=== PATIENT | female | born 1985 | race Two or more races ===

== ENCOUNTER → 2017-05-08 | Outpatient (CLI) | payer BC ==
[~2017-05-08] VITALS: Ht 160 cm; Wt 76.8 kg
[~2017-05-08] MED LIST: CELEXA20 MG PO; FLEXERIL10 MG PO; NAPROXEN500 MG PO; PRENATAL TABLE1 EAC3 PO; TRAMADOL HCL50 MG PO
[2017-05-08 13:18] VITALS: BP 125/55
== END | disposition home or self-care (01) ==
LOC: IVINF 13:00
DX: Z34.83 Encounter for supervision of other normal pregnancy, third trimester (principal); Z3A.28 28 weeks gestation of pregnancy; Z67.11 Type A blood, Rh negative
CPT/HCPCS: 96372; J2790

== ENCOUNTER 2017-08-02 06:35 | Inpatient (IN) | payer BC ==
[2017-08-02] VITALS (20 sets, daily range): BP systolic 106–136; BP diastolic 54–75
[~2017-08-02] VITALS: Ht 160 cm; Wt 83.6 kg
[2017-08-02 07:47] LABS: BASOPHIL (%) 0.4 % (0-1); BASOPHIL COUNT 0.1 K/uL (0-0.1); EOSINOPHIL (%) 0.2 % (0-5); HEMATOCRIT 35.6 % (36.0-46.0); HEMOGLOBIN 12.2 G/DL (11.9-15.5); IMMATURE GRANULOCYTE (%) 0.5 % (0.0-0.7); LYMPHOCYTE COUNT 2.4 K/uL (1.0-2.8); MCHC 34.3 G/DL (30.0-36.0); MCV 87.7 FL (83-99); MONOCYTE (%) 6.3 % (3-12); MONOCYTE COUNT 0.8 K/uL (0-0.8); NEUTROPHIL (%) 73.6 % (45-76); NEUTROPHIL COUNT 9.4 K/uL (1.8-6.4); PLATELET COUNT 196 K/uL (156-360); RBC DIS.WIDTH-CV 12.9 % (11.8-14.6); RBC DIS.WIDTH-SD 41.1 % (39-53); RED BLOOD COUNT 4.06 M/uL (3.80-5.20); WHITE BLOOD COUNT 12.8 K/uL (4.1-10.2)
[2017-08-02 15:27] LABS: AMPHETAMINE NEGATIVE (500 ng/mL); BARBITURATES NEGATIVE (200 ng/mL); BENZODIAZEPINES NEGATIVE (150 ng/mL); BUPRENORPHINE NEGATIVE (10 ng/mL); COCAINE NEGATIVE (150 ng/mL); METHADONE NEGATIVE (200 ng/mL); METHAMPHETAMINE NEGATIVE (500 ng/mL); OPIATES (MORPHINE) NEGATIVE (100 ng/mL); OXYCODONE NEGATIVE (100 ng/mL); PHENCYCLIDINE NEGATIVE (25 ng/mL); PROPOXYPHENE NEGATIVE (300 ng/mL); THC CANNABINOIDS PRESUMPTIVE POSITIVE (50 ng/mL); TRICYCLIC ANTIDEPRESSANTS NEGATIVE (300 ng/mL)
[2017-08-02] MEDS ORDERED: IBUPROFEN800 MG PO (20:21)
== END 2017-08-03 16:15 | disposition home or self-care (01) | DRG 775 ==
LOC: LDRP-OP 06:35 → 2WEST 06:36
PROVIDERS: Advanced Practice Midwife; Nurse Practitioner
DX: O99.324 Drug use complicating childbirth (principal); O36.0931 Maternal care for other rhesus isoimmunization, third trimester, fetus 1; Z37.0 Single live birth; Z3A.40 40 weeks gestation of pregnancy; F12.10 Cannabis abuse, uncomplicated; O26.93 Pregnancy related conditions, unspecified, third trimester; M54.9 Dorsalgia, unspecified; O70.0 First degree perineal laceration during delivery; Z87.891 Personal history of nicotine dependence
CPT/HCPCS: 83030; 84999; 85025; 86850; 86900; 86901; C1755; J2790; J3010; J7120